=== PATIENT | male | born 1940 | race Caucasian/White ===

== ENCOUNTER → 2017-02-13 | Outpatient (CLI) | payer OTHER, BC | LOC: PET 14:28 | DX: J84.10 Pulmonary fibrosis, unspecified (principal); I70.0 Atherosclerosis of aorta; K44.9 Diaphragmatic hernia without obstruction or gangrene ==

== ENCOUNTER → 2017-07-09 | Outpatient (CLI) | payer OTHER, BC | LOC: RAD 10:38 | DX: J18.1 Lobar pneumonia, unspecified organism (principal) ==